=== PATIENT | male | born 2000 | race American Indian/Alaskan Native ===

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

== ENCOUNTER 2021-04-20 16:52 | Emergency (ER) | payer BC ==
[2021-04-20 17:57] VITALS: BP 125/58; PULSE 56
--- NOTE | 2021-04-20 18:29 | CR ---
PROCEDURE INFORMATION: Exam: XR Right Knee Exam date and time: 04/20/2021 5:52 PM Age: 20 years old Clinical indication: Swelling or effusion of joint; Knee; Additional info: Swelling to right knee TECHNIQUE: Imaging protocol: XR Right knee. Views: 3 views. COMPARISON: No relevant prior studies available. FINDINGS: Bones/joints: Normal. Soft tissues: Normal. IMPRESSION: No acute findings.
--- NOTE | 2021-04-20 20:13 | EDM.PDOC ---
ED HPI GENERAL MEDICAL PROBLEM - General Chief Complaint: Lower Extremity Injury/Pain Stated Complaint: INJURED KNEE PLAYING BASKETBALL Time Seen by Provider: 04/20/21 19:10 Source of Information: Reports: Patient History Limitations: Reports: No Limitations - History of Present Illness INITIAL COMMENTS - FREE TEXT/NARRATIVE: Playing basketball last night, fell, pain to right outer knee, Does not feel like going to give out, increased pain with flexion. No prior injury. - Related Data Allergies Allergy/AdvReac Type Severity Reaction Status Date / Time No Known Allergies Allergy Verified 04/20/21 17:51 Home Meds: Home Meds Clindamycin Phos/Benzoyl Perox [Clind pH-Benzoyl Perox 1.2-5%] 1 applic TOP ASDIRECTED PRN 04/20/21 [History] Ketoconazole 1 applic TOP ASDIRECTED PRN 04/20/21 [History] Tretinoin 1 applic TOP DAILY 04/20/21 [History] Past Medical History - Past Health History Medical/Surgical History: Denies Medical/Surgical History HEENT History: Reports: None Cardiovascular History: Reports: None Respiratory History: Reports: None Gastrointestinal History: Reports: None Genitourinary History: Reports: None Musculoskeletal History: Reports: None Neurological History: Reports: None Psychiatric History: Reports: None Endocrine/Metabolic History: Reports: None Hematologic History: Reports: None Immunologic History: Reports: None Oncologic (Cancer) History: Reports: None Dermatologic History: Reports: None - Infectious Disease History Infectious Disease History: Reports: None - Past Surgical History Head Surgeries/Procedures: Reports: None Social & Family History - Family History Family Medical History: No Pertinent Family History - Tobacco Use Tobacco Use Status *Q: Current Every Day Tobacco User Years of Tobacco use: 2 Packs/Tins Daily: 0.5 - Caffeine Use Caffeine Use: Reports: Soda Review of Systems - Review of Systems Review Of Systems: Comprehensive ROS is negative, except as noted in HPI. ED EXAM, GENERAL - Physical Exam Exam: See Below Exam Limited By: No Limitations General Appearance: Alert, Mild Distress Ears: Normal External Exam Head: Atraumatic, Normocephalic Neck: Normal Inspection Respiratory/Chest: No Respiratory Distress, Normal Breath Sounds Cardiovascular: Normal Peripheral Pulses, Regular Rate, Rhythm Extremities: Joint Swelling (minimal left aubrey), Limited Range of Motion (limited flexion, increased pain approximately 70degrees, greater, lateral knee, minimal tenderness lateralkee with palpation. No laxity) Neurological: Alert, Oriented, Normal Cognition Skin Exam: Warm, Dry, Intact, Normal Color Course - Vital Signs Last Recorded V/S: Last Vital Signs Temp 99 F 04/20/21 17:34 Pulse 56 L 04/20/21 17:34 Resp 16 04/20/21 17:34 BP 125/58 L 04/20/21 17:34 Pulse Ox 99 04/20/21 17:34 Departure - Departure Time of Disposition: 20:11 Disposition: Home, Self-Care 01 Condition: Good Clinical Impression: Right knee sprain - Discharge Information *PRESCRIPTION DRUG MONITORING PROGRAM REVIEWED*: No *COPY OF PRESCRIPTION DRUG MONITORING REPORT IN PATIENT LESTER: No Instructions: Knee Sprain, Adult, [id number] Forms: ED Department Discharge Additional Instructions: ice rest joseph wrap or knee brace clinic follow up one wee alternate tylenol and ibuprofen every 4 hours as needed for discomfort Sepsis Event Note (ED) - Evaluation Sepsis Screening Result: No Definite Risk
== END 2021-04-20 20:16 | disposition home or self-care (01) ==
LOC: DL.ED 16:52
DX: S83.91XA Sprain of unspecified site of right knee, initial encounter (principal); W18.39XA Other fall on same level, initial encounter; Y93.67 Activity, basketball
CPT/HCPCS: 73562-RT; 99283